=== PATIENT | female | born 1935 | race Caucasian/White ===

== ENCOUNTER → 2019-05-23 | Outpatient (CLI) | payer OTHER ==
[~2019-05-23] MED LIST: ARTHROTEC EC 51 EACH PO; DIOVAN HCT 1601 EAC1 PO; HYDROCODON-ACE1 EAC1 PO; KLOR-CON 1010 MEQ PO; LIPITOR20 MG PO; MULTIVITAMINS PO; PENICILLIN PO; PROTONIX40 M2 PO; TOPROL XL50 MG PO; VERAPAMIL ER100 MG PO
== END ==
LOC: RAD 01:26
DX: Z12.31 Encounter for screening mammogram for malignant neoplasm of breast (principal)